=== PATIENT | female | born 1950 | race Caucasian/White ===

== ENCOUNTER 2016-10-09 14:20 | Emergency (ER) | payer MEDICARE, OTHER ==
--- NOTE | 2016-10-15 19:54 | ER ---
ADMIT: 10/09/2016 RM/LOC: ER [facility] MR#: [id number] [id number] [place] [address] Emergency Room Report SEX: F AGE: 65 : 1950 DATE: 10/09/2016 CHIEF COMPLAINT: Left lower leg infection. HISTORY OF PRESENT ILLNESS: This 65-year-old female who presents with an injury sustained on her left lower leg 2 days ago. States she hit her leg on a box sustaining somewhat of an abrasion, skin tear. For the past 2 days, it became increasingly red, warm, and painful. Denies any other injuries. No fevers, chills, shortness of breath, cough, nausea, vomiting. PAST MEDICAL HISTORY: Hypertension, cholecystectomy. ALLERGIES: NO KNOWN DRUG ALLERGIES. COURSE IN THE EMERGENCY ROOM: The patient was seen and examined. GENERAL: Afebrile and nontoxic. No acute distress. EXTREMITIES: Leg does have evidence of a previous open wound, now scabbed over. There is no drainage, however, there is surrounding warmth, erythema, and tenderness to palpation. Neurovascularly she is intact. She has good distal cap refill. Good pulses. She is able to ambulate without difficulty. IMPRESSION: 1. Left lower leg cellulitis. 2. Left lower leg abrasion. DISPOSITION: Patient was discharged on Keflex 500 mg p.o. b.i.d. for 5 days. She is to keep it clean and dry. Wash daily with warm soapy water. Follow up with Dr. Jiménez if she is not improving. Questions sought and answered to best of my ability and the patient's satisfaction. Discharged in stable condition. RUBINA Kingston / Nestor Fernando MD / artem JOB #: [id number] CC: Nestor Fernando MD, Attending Physician Marci Jiménez MD, Family Physician
== END 2016-10-09 14:40 | disposition home or self-care (01) ==
LOC: ER 14:20
DX: S80.812A Abrasion, left lower leg, initial encounter (principal); L03.116 Cellulitis of left lower limb; Z23 Encounter for immunization; I10 Essential (primary) hypertension; Z90.49 Acquired absence of other specified parts of digestive tract; W23.0XXA Caught, crushed, jammed, or pinched between moving objects, initial encounter; Y92.009 Unspecified place in unspecified non-institutional (private) residence as the place of occurrence of the external cause